=== PATIENT | female | born 1945 | race Caucasian/White ===

== ENCOUNTER 2018-03-16 07:21 | Inpatient (IN) | payer MEDICARE, OTHER ==
[~2018-03-16] VITALS: Ht 167.6 cm; Wt 102.4 kg
[2018-03-16] MEDS ORDERED: LIDO700A15 TD (07:31)
[2018-03-16] MEDS ORDERED: AMLO-512 PO (07:31)
[2018-03-16] MEDS ORDERED: ADAL40KI SQ (07:31)
[2018-03-16] MEDS ORDERED: DOCU250C91 PO (07:31)
[2018-03-16] MEDS ORDERED: CITA-106 PO (07:31)
[2018-03-16] MEDS ORDERED: BUPR-47 PO (07:31)
[2018-03-16] MEDS ORDERED: CARV3 PO (07:31)
[2018-03-16] MEDS ORDERED: APIX5TAB PO (07:31)
[2018-03-16] MEDS ORDERED: FLUT16H NASAL (07:31)
[2018-03-16] MEDS ORDERED: IPRNEB IH (07:31)
[2018-03-16] MEDS ORDERED: HYDR-2924 PO (07:31)
[2018-03-16] MEDS ORDERED: ASPI81TA39 PO (07:31)
[2018-03-16] MEDS ORDERED: SENN-175 PO (07:31)
[2018-03-16] MEDS ORDERED: FAMO20 PO (07:31)
[2018-03-16 07:53] LABS: BASOPHILS % (AUTO) 0.9 % (0.0-2.0); EOSINOPHILS % (AUTO) 3.1 % (1.0-6.0); HEMATOCRIT 39.3 % (36-46); LYMPHOCYTES # (AUTO) 0.5 K/uL (1.0-4.8); LYMPHOCYTES % (AUTO) 9.5 % (22.0-44.0); MEAN CORPUSCULAR HEMOGLOBIN 28.2 pg (26.0-34.0); MEAN CORPUSCULAR HGB CONC 33.2 G/dL (31.0-37.0); MEAN CORPUSCULAR VOLUME 85 fL (80-100); MONOCYTES # (AUTO) 0.2 K/uL (0.1-1.0); MONOCYTES % (AUTO) 4.4 % (2.0-9.0); NEUTROPHILS # (AUTO) 3.9 K/uL (1.8-7.7); NEUTROPHILS % (AUTO) 82.1 % (40.0-70.0); PLATELET COUNT (AUTO) 209 K/uL (150-450); RED BLOOD CELL COUNT(AUTO) 4.62 MIL/uL (4.00-5.20); RED CELL DISTRIBUTION WIDTH 15.5 % (11.5-14.5)
[2018-03-16 07:58] LABS: ANION GAP 8 mmol/L (8-16); CARBON DIOXIDE 24 mmol/L (22-29); CHLORIDE 104 mmol/L (98-107); GLOMERULAR FILTR. RATE CALC 23 mL/min (>60); GLUCOSE,RANDOM 113 mg/dL (70-110); POTASSIUM 5.1 mmol/L (3.5-5.1); SODIUM SERUM 136 mmol/L (136-145); UREA NITROGEN, BLOOD 32 mg/dL (7-18)
[2018-03-16 08:03] LABS: INR 1.1 (0.9-1.1); PROTHROMBIN TIME 11.1 SEC (9.4-11.6)
[2018-03-16 08:06] LABS: ALANINE AMINOTRANSFERASE 12 U/L (12-78); ALBUMIN 3.3 g/dL (3.4-5.0); ALKALINE PHOSPHATASE 93 U/L (46-116); ASPARTATE AMINOTRANSFERASE 12 U/L (15-37); BILIRUBIN,TOTAL 0.3 mg/dL (0.1-1.0); CREATINE KINASE, TOTAL 16 U/L (26-192); TOTAL PROTEIN, SERUM 6.5 g/dL (6.4-8.2)
[2018-03-16] MEDS ORDERED: ONDANSETRON HCL 4 MG/2 ML VIAL ONE (08:14)
[2018-03-16] MEDS ORDERED: ONDANSETRON HCL 4 MG/2 ML VIAL IVP ONE (08:15)
[2018-03-16 08:43] LABS: ABG A-A DIFF O2 12.4 mmHg (10-20.0); ABG BASE EXCESS -1.9 mmol/L (-2.0-3.0); ABG CARBOXYHEMOGLOBIN 1.6 % (0.0-1.5); ABG HCO3 22.1 mmol/L (22.0-26.0); ABG METHEMOGLOBIN 0.4 % (0.0-1.5); ABG OXYGEN CONTENT 17.2 mL/dL (15.0-23.0); ABG OXYGEN SATURATION 93.2 % (95.0-98.0); ABG OXYHEMOGLOBIN 91.3 % (94.0-100.0); ABG PCO2 57 mmHg (35-45); ABG PH 7.264 (7.35-7.450); ABG TOTAL HEMOGLOBIN 13.4 G/dL (12.0-18.0); O2 DEVICE,BLOOD GAS ROOM AIR (ROOM AIR); PO2, ARTERIAL BG 69.7 mmHg (75.0-83.0); SITE, BLOOD GAS LFT RADIAL; SOURCE, BLOOD GAS ARTERIAL
[2018-03-16 08:56] LABS: B-TYPE NATRIURETIC PEPTIDE 22 pg/mL (0-100)
[2018-03-16] MEDS ORDERED: ACETAMINOPHEN 325 MG TABLET PO PRN ×2 (09:15→11:00)
[2018-03-16] MEDS ORDERED: 0.9% SODIUM CHLORIDE 10 ML SYRINGE IVP PRN (09:15)
[2018-03-16] MEDS ORDERED: ONDANSETRON HCL 4 MG/2 ML VIAL IVP PRN ×2 (09:15→11:00)
[2018-03-16 09:55] LABS: ABG A-A DIFF O2 12.1 mmHg (10-20.0); ABG BASE EXCESS -3.6 mmol/L (-2.0-3.0); ABG CARBOXYHEMOGLOBIN 1.5 % (0.0-1.5); ABG HCO3 21.7 mmol/L (22.0-26.0); ABG METHEMOGLOBIN 0.5 % (0.0-1.5); ABG OXYGEN CONTENT 18.5 mL/dL (15.0-23.0); ABG OXYGEN SATURATION 96.8 % (95.0-98.0); ABG OXYHEMOGLOBIN 94.9 % (94.0-100.0); ABG PCO2 41 mmHg (35-45); ABG PH 7.349 (7.35-7.450); ABG TOTAL HEMOGLOBIN 13.8 G/dL (12.0-18.0); O2 DEVICE,BLOOD GAS ROOM AIR (ROOM AIR); PO2, ARTERIAL BG 88.7 mmHg (75.0-83.0); SITE, BLOOD GAS RT RADIAL; SOURCE, BLOOD GAS ARTERIAL; TEMPERATURE, FAHRENHEIT, BG 98.6 FAHREN (96.0-98.6)
[2018-03-16] MEDS: ASPIRIN 81 MG CHEWABLE TABLET PO SCH (11:00)
[2018-03-16] MEDS ORDERED: ALBUTEROL SULFATE 2.5 MG/0.5 ML NEB SOLUTION NEB PRN (11:00)
[2018-03-16] MEDS ORDERED: BISACODYL 10 MG RECTAL RECTAL SUPPOSITORY PR PRN (11:00)
[2018-03-16] MEDS: ATORVASTATIN CALCIUM 20 MG TABLET PO SCH (11:00)
[2018-03-16 13:50] VITALS: BP 140/86
[2018-03-16 15:17] VITALS: BP 147/95
[2018-03-16] MEDS: HEPARIN SODIUM,PORCINE 5,000 UNITS/ML VIAL SQ SCH ×2 (16:00→23:56)
[2018-03-16] MEDS ORDERED: PNEUMOCOCCAL VACCINE POLYVALENT 0.5 ML VIAL [PPSV23] IM ONE (16:15)
[2018-03-16 16:18] LABS: THYROID STIMULATING HORMONE 9.04 uIU/mL (0.36-3.74)
[2018-03-16 19:47] VITALS: BP 139/97
[2018-03-16] MEDS: DOCUSATE SODIUM 100 MG CAPSULE PO SCH (21:00)
[2018-03-17] VITALS: BP 121/77
[2018-03-17 04:35] VITALS: BP 122/62
[2018-03-17 07:26] LABS: BASOPHILS % (AUTO) 0.9 % (0.0-2.0); HEMATOCRIT 39.5 % (36-46); HEMOGLOBIN 13.3 g/dL (12.0-16.0); LYMPHOCYTES # (AUTO) 0.7 K/uL (1.0-4.8); LYMPHOCYTES % (AUTO) 13.2 % (22.0-44.0); MEAN CORPUSCULAR HEMOGLOBIN 28.3 pg (26.0-34.0); MEAN CORPUSCULAR HGB CONC 33.6 G/dL (31.0-37.0); MEAN CORPUSCULAR VOLUME 84 fL (80-100); MONOCYTES # (AUTO) 0.4 K/uL (0.1-1.0); MONOCYTES % (AUTO) 7.8 % (2.0-9.0); NEUTROPHILS % (AUTO) 76.1 % (40.0-70.0); PLATELET COUNT (AUTO) 232 K/uL (150-450); RED BLOOD CELL COUNT(AUTO) 4.69 MIL/uL (4.00-5.20); RED CELL DISTRIBUTION WIDTH 16.1 % (11.5-14.5)
[2018-03-17 07:55] LABS: CALCIUM, TOTAL 9.1 mg/dL (8.8-10.5); CREATININE 2.55 mg/dL (0.60-1.30); POTASSIUM 5.3 mmol/L (3.5-5.1)
[2018-03-17 08:02] VITALS: BP 138/76
[2018-03-17] MEDS: ATORVASTATIN CALCIUM 20 MG TABLET PO SCH (08:08)
[2018-03-17] MEDS: ASPIRIN 81 MG CHEWABLE TABLET PO SCH (08:08)
[2018-03-17] MEDS: DOCUSATE SODIUM 100 MG CAPSULE PO SCH ×2 (08:08→21:04)
[2018-03-17] MEDS: PANTOPRAZOLE SODIUM 40 MG DR TABLET PO SCH (08:09)
[2018-03-17] MEDS: HEPARIN SODIUM,PORCINE 5,000 UNITS/ML VIAL SQ SCH ×3 (08:14→23:22)
[2018-03-17 12:00] VITALS: BP 136/84
[2018-03-17 16:00] VITALS: BP 141/88
[2018-03-17 20:19] VITALS: BP 133/80
[2018-03-18 00:22] VITALS: BP 127/82
[2018-03-18 04:29] VITALS: BP 135/86
[2018-03-18] MEDS: LEVOTHYROXINE SODIUM 25 MCG TABLET PO SCH (06:25)
[2018-03-18 06:27] LABS: CALCIUM, TOTAL 8.8 mg/dL (8.8-10.5); CREATININE 2.99 mg/dL (0.60-1.30); POTASSIUM 5.1 mmol/L (3.5-5.1)
[2018-03-18 07:48] VITALS: BP 140/76
[2018-03-18] MEDS: DOCUSATE SODIUM 100 MG CAPSULE PO SCH ×2 (09:17→20:52)
[2018-03-18] MEDS: ATORVASTATIN CALCIUM 20 MG TABLET PO SCH (09:17)
[2018-03-18] MEDS: PANTOPRAZOLE SODIUM 40 MG DR TABLET PO SCH (09:17)
[2018-03-18] MEDS: ASPIRIN 81 MG CHEWABLE TABLET PO SCH (09:17)
[2018-03-18] MEDS: HEPARIN SODIUM,PORCINE 5,000 UNITS/ML VIAL SQ SCH ×2 (09:18→20:52)
[2018-03-18 11:30] VITALS: BP 119/65
[2018-03-18] MEDS ORDERED: SODIUM CHLORIDE 0.9% 1,000 ML IV ONE (12:15)
[2018-03-18] MEDS ORDERED: LORazepam 2 MG/ML VIAL IVP ONE (14:00)
[2018-03-18 16:37] VITALS: BP 132/77
[2018-03-18 20:08] VITALS: BP 132/54
[2018-03-19 00:34] VITALS: BP 141/76
[2018-03-19 04:10] VITALS: BP 113/76
[2018-03-19] MEDS: LEVOTHYROXINE SODIUM 25 MCG TABLET PO SCH (06:19)
[2018-03-19 07:21] LABS: CALCIUM, TOTAL 8.4 mg/dL (8.8-10.5); CREATININE 2.56 mg/dL (0.60-1.30); POTASSIUM 4.8 mmol/L (3.5-5.1)
[2018-03-19 07:38] VITALS: BP 135/69
[2018-03-19] MEDS: PANTOPRAZOLE SODIUM 40 MG DR TABLET PO SCH (09:36)
[2018-03-19] MEDS: DOCUSATE SODIUM 100 MG CAPSULE PO SCH ×2 (09:36→21:54)
[2018-03-19] MEDS: ATORVASTATIN CALCIUM 20 MG TABLET PO SCH (09:36)
[2018-03-19] MEDS: ASPIRIN 81 MG CHEWABLE TABLET PO SCH (09:36)
[2018-03-19] MEDS: HEPARIN SODIUM,PORCINE 5,000 UNITS/ML VIAL SQ SCH ×2 (09:37→21:54)
[2018-03-19 11:54] VITALS: BP 129/60
[2018-03-19 15:44] VITALS: BP 115/80
[2018-03-19] MEDS: IBUPROFEN 400 MG TABLET PO SCH (16:57)
[2018-03-19 19:38] VITALS: BP 132/75
[2018-03-19] MEDS: NYSTATIN 15 GM POWDER BOTTLE TP SCH (21:54)
[2018-03-20 00:27] VITALS: BP 143/73
[2018-03-20 03:59] VITALS: BP 145/77
[2018-03-20] MEDS: LEVOTHYROXINE SODIUM 25 MCG TABLET PO SCH (06:10)
[2018-03-20 08:00] VITALS: BP 147/88
[2018-03-20] MEDS: PANTOPRAZOLE SODIUM 40 MG DR TABLET PO SCH (08:38)
[2018-03-20] MEDS: ASPIRIN 81 MG CHEWABLE TABLET PO SCH (08:38)
[2018-03-20] MEDS: DOCUSATE SODIUM 100 MG CAPSULE PO SCH (08:38)
[2018-03-20] MEDS: IBUPROFEN 400 MG TABLET PO SCH ×3 (08:38→15:13)
[2018-03-20] MEDS: HEPARIN SODIUM,PORCINE 5,000 UNITS/ML VIAL SQ SCH (08:39)
[2018-03-20] MEDS: ATORVASTATIN CALCIUM 20 MG TABLET PO SCH (08:39)
[2018-03-20] MEDS: NYSTATIN 15 GM POWDER BOTTLE TP SCH (08:39)
[2018-03-20] MEDS ORDERED: SERTRALINE HCL 50 MG TABLET PO SCH (09:00)
[2018-03-20 11:16] VITALS: BP 120/59
[2018-03-20] MEDS ORDERED: BUPR150SR PO (15:49)
[2018-03-20 15:55] VITALS: BP 126/73
== END 2018-03-20 17:45 | DRG 682 ==
LOC: EMS 07:23 → 5S 11:37
PROVIDERS: ADMIT Internal Medicine; ATTEND Internal Medicine
PROC: 5A09457 Assistance with Respiratory Ventilation, 24-96 Consecutive Hours, Continuous Positive Airway Pressure (ICD-10-PCS; principal; 2018-03-16)
DX: N17.9 Acute kidney failure, unspecified (principal); G92 Toxic encephalopathy; F33.2 Major depressive disorder, recurrent severe without psychotic features; E87.2 Acidosis; I50.32 Chronic diastolic (congestive) heart failure; G47.33 Obstructive sleep apnea (adult) (pediatric); T50.905A Adverse effect of unspecified drugs, medicaments and biological substances, initial encounter; I25.10 Atherosclerotic heart disease of native coronary artery without angina pectoris; M19.90 Unspecified osteoarthritis, unspecified site; N18.9 Chronic kidney disease, unspecified; G89.29 Other chronic pain; M10.9 Gout, unspecified; E66.01 Morbid (severe) obesity due to excess calories; J44.9 Chronic obstructive pulmonary disease, unspecified; E03.9 Hypothyroidism, unspecified; Z79.82 Long term (current) use of aspirin; Z79.01 Long term (current) use of anticoagulants; Z79.899 Other long term (current) drug therapy; Z87.440 Personal history of urinary (tract) infections; Z68.36 Body mass index [BMI] 36.0-36.9, adult; Z28.21 Immunization not carried out because of patient refusal; Y92.89 Other specified places as the place of occurrence of the external cause
CPT/HCPCS: 51702; 70551; 82805; 84443; 87081; 92610; 93005; 93306; 94660; 96374; 97162; 99291; G0480; J1644; J2060; J2405; J7030

== ENCOUNTER 2020-10-09 13:05 | Inpatient (IN) | payer MEDICARE, OTHER ==
[~2020-10-09] VITALS: Ht 165.1 cm; Wt 133.5 kg
[~2020-10-09 13:05] MED LIST: ADAL40KI SQ; AMLO-258 PO; APIX5TAB PO; ASPI-728 PO; BUPR-93 PO; CEFA1FRO IV; DOCU-350 PO; FLUT16H NASAL; HYDR-2924 PO; IPRNEB IH; LEVO112T4 PO; PANT-31 PO; SENN-277 PO
[2020-10-09 15:44] LABS: BASOPHILS % (AUTO) 0.5 % (0.0-2.0); EOSINOPHILS % (AUTO) 0.5 % (1.0-6.0); HEMATOCRIT 27.7 % (36-46); HEMOGLOBIN 8.8 g/dL (12.0-16.0); LYMPHOCYTES # (AUTO) 0.9 K/uL (1.0-4.8); LYMPHOCYTES % (AUTO) 13.9 % (22.0-44.0); MEAN CORPUSCULAR HEMOGLOBIN 29.1 pg (26.0-34.0); MEAN CORPUSCULAR HGB CONC 31.7 G/dL (31.0-37.0); MEAN CORPUSCULAR VOLUME 92 fL (80-100); MONOCYTES # (AUTO) 0.5 K/uL (0.1-1.0); NEUTROPHILS # (AUTO) 4.9 K/uL (1.8-7.7); NEUTROPHILS % (AUTO) 77.1 % (40.0-70.0); PLATELET COUNT (AUTO) 183 K/uL (150-450); RED BLOOD CELL COUNT(AUTO) 3.02 MIL/uL (4.00-5.20); RED CELL DISTRIBUTION WIDTH 16.2 % (11.5-14.5)
[2020-10-09] MEDS ORDERED: DEXAMETHASONE SOD PHOS 4 MG/ML VIAL IVP ONE (15:45)
[2020-10-09 15:50] LABS: CALCIUM, TOTAL 8.1 mg/dL (8.8-10.5); CREATININE 2.25 mg/dL (0.60-1.30); POTASSIUM 5.8 mmol/L (3.5-5.1)
[2020-10-09 15:59] LABS: INR 1.1 (0.9-1.1); PROTHROMBIN TIME 11.9 SEC (9.4-11.6)
[2020-10-09 16:07] LABS: COVID AG,FIA SOURCE NASAL SWAB
[2020-10-09 16:15] LABS: ALBUMIN 2.1 g/dL (3.4-5.0); BILIRUBIN,TOTAL 0.4 mg/dL (0.1-1.0); TOTAL PROTEIN, SERUM 6.5 g/dL (6.4-8.2)
[2020-10-09 16:38] LABS: INFLUENZA TYPE A NEGATIVE FOR TYPE A (NEGATIVE); INFLUENZA TYPE B NEGATIVE FOR TYPE B (NEGATIVE)
[2020-10-09 17:30] LABS: D-DIMER 0.91 mg/L FEU (0.00-0.50)
[2020-10-09 17:45] LABS: C-REACTIVE PROTEIN QUANT 20.05 mg/dL (0.00-0.30)
[2020-10-09] MEDS ORDERED: 0.9% SODIUM CHLORIDE 10 ML SYRINGE IVP PRN (17:45)
[2020-10-09] MEDS ORDERED: ALBUTEROL SULFATE/IPRATROPIUM 100-20 MCG/SPRAY 4 GM INHALER IH PRN (17:45)
[2020-10-09] MEDS ORDERED: BISACODYL 10 MG RECTAL RECTAL SUPPOSITORY PR PRN (17:45)
[2020-10-09] MEDS ORDERED: ONDANSETRON HCL 4 MG/2 ML VIAL IVP PRN (17:45)
[2020-10-09] MEDS ORDERED: HEPARIN SODIUM,PORCINE 5,000 UNITS/ML VIAL IVP PRN ×2 (18:00)
[2020-10-09] MEDS: ALBUTEROL SULFATE/IPRATROPIUM 100-20 MCG/SPRAY 4 GM INHALER IH SCH (18:46)
[2020-10-09] MEDS: CefTRIAXone 1 GM/DEXTROSE 50 ML IV SCH (18:48)
[2020-10-09] MEDS ORDERED: HYDR10TA31 PO (19:24)
[2020-10-09] MEDS ORDERED: OXYC10TA59 PO (19:24)
[2020-10-09] MEDS ORDERED: CRAN400C PO (19:24)
[2020-10-09 19:47] LABS: INR 1.1 (0.9-1.1); PROTHROMBIN TIME 11.6 SEC (9.4-11.6)
[2020-10-09] MEDS ORDERED: SODIUM CHLORIDE 0.9% 250 ML IV ONE (22:37)
[2020-10-09 22:39] VITALS: BP 112/62
[2020-10-09] MEDS: SENNA 187 MG TABLET PO SCH (22:43)
[2020-10-09] MEDS: DOXYCYCLINE HYCLATE 100 MG in DEXTROSE 5%-WATER 100 ML IV SCH (22:43)
[2020-10-09] MEDS: DOCUSATE SODIUM 100 MG CAPSULE PO SCH (22:43)
[2020-10-09] MEDS: PANTOPRAZOLE SODIUM 40 MG DR TABLET PO SCH (22:43)
[2020-10-09] MEDS: HEPARIN SODIUM 25000 UNITS/D5W 250 ML IV PRN (23:34)
[2020-10-10 04:38] VITALS: BP 133/59
[2020-10-10] MEDS: ALBUTEROL SULFATE/IPRATROPIUM 100-20 MCG/SPRAY 4 GM INHALER IH SCH ×4 (06:00→18:00)
[2020-10-10] MEDS: LEVOTHYROXINE SODIUM 112 MCG TABLET PO SCH (06:32)
[2020-10-10 07:37] LABS: BASOPHILS % (AUTO) 0.3 % (0.0-2.0); EOSINOPHILS % (AUTO) 0 % (1.0-6.0); HEMATOCRIT 30.3 % (36-46); HEMOGLOBIN 9.7 g/dL (12.0-16.0); LYMPHOCYTES # (AUTO) 0.4 K/uL (1.0-4.8); LYMPHOCYTES % (AUTO) 8.6 % (22.0-44.0); MEAN CORPUSCULAR HEMOGLOBIN 29.2 pg (26.0-34.0); MEAN CORPUSCULAR HGB CONC 31.9 G/dL (31.0-37.0); MEAN CORPUSCULAR VOLUME 92 fL (80-100); MONOCYTES # (AUTO) 0.2 K/uL (0.1-1.0); MONOCYTES % (AUTO) 4.8 % (2.0-9.0); NEUTROPHILS # (AUTO) 3.7 K/uL (1.8-7.7); PLATELET COUNT (AUTO) 187 K/uL (150-450); RED BLOOD CELL COUNT(AUTO) 3.31 MIL/uL (4.00-5.20)
[2020-10-10 08:23] LABS: NEUTROPHILS % (AUTO) 86.3 % (40.0-70.0)
[2020-10-10 08:24] VITALS: BP 128/72
[2020-10-10] MEDS: BuPROPion HCL XL 150 MG ER TABLET PO SCH (08:29)
[2020-10-10] MEDS: PANTOPRAZOLE SODIUM 40 MG DR TABLET PO SCH ×2 (08:29→21:42)
[2020-10-10] MEDS: SENNA 187 MG TABLET PO SCH ×2 (08:29→21:42)
[2020-10-10] MEDS: DEXAMETHASONE SOD PHOS 4 MG/ML VIAL IVP SCH (08:29)
[2020-10-10] MEDS: ASPIRIN 81 MG CHEWABLE TABLET PO SCH (08:30)
[2020-10-10] MEDS: DOCUSATE SODIUM 100 MG CAPSULE PO SCH ×2 (08:30→21:42)
[2020-10-10] MEDS: DOXYCYCLINE HYCLATE 100 MG in DEXTROSE 5%-WATER 100 ML IV SCH ×2 (08:31→21:42)
[2020-10-10] MEDS: FLUTICASONE PROPIONATE 50 MCG/SPRAY 16 GM NASAL SPRAY NASAL SCH (08:31)
[2020-10-10 08:55] LABS: ALBUMIN 2.2 g/dL (3.4-5.0); BILIRUBIN,TOTAL 0.2 mg/dL (0.1-1.0); C-REACTIVE PROTEIN QUANT 15.46 mg/dL (0.00-0.30); CALCIUM, TOTAL 8.7 mg/dL (8.8-10.5); CREATININE 2.11 mg/dL (0.60-1.30); POTASSIUM 5.3 mmol/L (3.5-5.1); TOTAL PROTEIN, SERUM 6.6 g/dL (6.4-8.2)
[2020-10-10 09:13] LABS: D-DIMER 0.8 mg/L FEU (0.00-0.50)
[2020-10-10] MEDS ORDERED: SODIUM CHLORIDE 0.9% 1,000 ML IV ONE (09:30)
[2020-10-10 10:22] LABS: ERYTHROCYTE SEDIMENTATION RATE 120 MM/HR (0-20)
[2020-10-10] MEDS: HEPARIN SODIUM 25000 UNITS/D5W 250 ML IV PRN ×2 (10:40→22:26)
[2020-10-10 14:02] VITALS: BP 135/66
[2020-10-10 17:11] VITALS: BP 142/69
[2020-10-10] MEDS: CefTRIAXone 1 GM/DEXTROSE 50 ML IV SCH (18:47)
[2020-10-10 20:45] VITALS: BP 146/72
[2020-10-11 01:00] VITALS: BP 148/77
[2020-10-11 04:30] VITALS: BP 155/74
[2020-10-11] MEDS: ALBUTEROL SULFATE/IPRATROPIUM 100-20 MCG/SPRAY 4 GM INHALER IH SCH ×3 (06:00→12:00)
[2020-10-11] MEDS: LEVOTHYROXINE SODIUM 112 MCG TABLET PO SCH (06:06)
[2020-10-11 06:52] LABS: BASOPHILS % (AUTO) 0.2 % (0.0-2.0); EOSINOPHILS % (AUTO) 0 % (1.0-6.0); HEMATOCRIT 29.7 % (36-46); HEMOGLOBIN 9.5 g/dL (12.0-16.0); LYMPHOCYTES % (AUTO) 5.1 % (22.0-44.0); MEAN CORPUSCULAR HEMOGLOBIN 28.8 pg (26.0-34.0); MEAN CORPUSCULAR HGB CONC 32.1 G/dL (31.0-37.0); MEAN CORPUSCULAR VOLUME 90 fL (80-100); MONOCYTES # (AUTO) 0.5 K/uL (0.1-1.0); MONOCYTES % (AUTO) 2.5 % (2.0-9.0); NEUTROPHILS # (AUTO) 17.6 K/uL (1.8-7.7); PLATELET COUNT (AUTO) 252 K/uL (150-450); RED BLOOD CELL COUNT(AUTO) 3.32 MIL/uL (4.00-5.20); RED CELL DISTRIBUTION WIDTH 16.4 % (11.5-14.5)
[2020-10-11 07:08] LABS: NEUTROPHILS % (AUTO) 92.2 % (40.0-70.0)
[2020-10-11 07:23] VITALS: BP 158/73
[2020-10-11 07:41] LABS: ALBUMIN 2.2 g/dL (3.4-5.0); BILIRUBIN,TOTAL 0.4 mg/dL (0.1-1.0); C-REACTIVE PROTEIN QUANT 7.65 mg/dL (0.00-0.30); CALCIUM, TOTAL 8.7 mg/dL (8.8-10.5); CREATININE 1.79 mg/dL (0.60-1.30); POTASSIUM 4.7 mmol/L (3.5-5.1); TOTAL PROTEIN, SERUM 6.7 g/dL (6.4-8.2)
[2020-10-11] MEDS: DOXYCYCLINE HYCLATE 100 MG in DEXTROSE 5%-WATER 100 ML IV SCH ×2 (08:12→22:01)
[2020-10-11] MEDS: DEXAMETHASONE SOD PHOS 4 MG/ML VIAL IVP SCH (08:13)
[2020-10-11] MEDS: SENNA 187 MG TABLET PO SCH ×2 (08:14→22:00)
[2020-10-11] MEDS: PANTOPRAZOLE SODIUM 40 MG DR TABLET PO SCH ×2 (08:14→22:00)
[2020-10-11] MEDS: FLUTICASONE PROPIONATE 50 MCG/SPRAY 16 GM NASAL SPRAY NASAL SCH (08:14)
[2020-10-11] MEDS: BuPROPion HCL XL 150 MG ER TABLET PO SCH (08:14)
[2020-10-11] MEDS: ASPIRIN 81 MG CHEWABLE TABLET PO SCH (08:14)
[2020-10-11] MEDS: DOCUSATE SODIUM 100 MG CAPSULE PO SCH ×2 (08:14→22:00)
[2020-10-11 09:48] LABS: ERYTHROCYTE SEDIMENTATION RATE 105 MM/HR (0-20)
[2020-10-11 12:31] VITALS: BP 143/57
[2020-10-11 15:40] VITALS: BP 150/66
[2020-10-11] MEDS: HEPARIN SODIUM 25000 UNITS/D5W 250 ML IV PRN (16:32)
[2020-10-11] MEDS: CefTRIAXone 1 GM/DEXTROSE 50 ML IV SCH (20:18)
[2020-10-11 21:26] VITALS: BP 144/63
[2020-10-12 00:36] VITALS: BP 126/72
[2020-10-12 04:13] VITALS: BP 137/61
[2020-10-12] MEDS: ALBUTEROL SULFATE/IPRATROPIUM 100-20 MCG/SPRAY 4 GM INHALER IH SCH ×4 (06:00→17:24)
[2020-10-12] MEDS: LEVOTHYROXINE SODIUM 112 MCG TABLET PO SCH (06:23)
[2020-10-12 06:49] LABS: BASOPHILS % (AUTO) 0.4 % (0.0-2.0); EOSINOPHILS % (AUTO) 0.1 % (1.0-6.0); HEMATOCRIT 32.2 % (36-46); HEMOGLOBIN 10.3 g/dL (12.0-16.0); LYMPHOCYTES # (AUTO) 1.3 K/uL (1.0-4.8); LYMPHOCYTES % (AUTO) 9.2 % (22.0-44.0); MEAN CORPUSCULAR HEMOGLOBIN 28.8 pg (26.0-34.0); MEAN CORPUSCULAR HGB CONC 31.9 G/dL (31.0-37.0); MEAN CORPUSCULAR VOLUME 90 fL (80-100); MONOCYTES # (AUTO) 0.7 K/uL (0.1-1.0); NEUTROPHILS # (AUTO) 11.7 K/uL (1.8-7.7); PLATELET COUNT (AUTO) 249 K/uL (150-450); RED BLOOD CELL COUNT(AUTO) 3.57 MIL/uL (4.00-5.20); RED CELL DISTRIBUTION WIDTH 16.7 % (11.5-14.5)
[2020-10-12 07:30] LABS: D-DIMER 0.96 mg/L FEU (0.00-0.50)
[2020-10-12 07:39] LABS: ALBUMIN 2.3 g/dL (3.4-5.0); BILIRUBIN,TOTAL 0.3 mg/dL (0.1-1.0); C-REACTIVE PROTEIN QUANT 4.81 mg/dL (0.00-0.30); CREATININE 1.79 mg/dL (0.60-1.30); POTASSIUM 4.8 mmol/L (3.5-5.1); TOTAL PROTEIN, SERUM 6.6 g/dL (6.4-8.2)
[2020-10-12 07:47] LABS: NEUTROPHILS % (AUTO) 85.3 % (40.0-70.0)
[2020-10-12 08:29] VITALS: BP 151/69
[2020-10-12] MEDS: PANTOPRAZOLE SODIUM 40 MG DR TABLET PO SCH ×2 (09:08→19:58)
[2020-10-12] MEDS: BuPROPion HCL XL 150 MG ER TABLET PO SCH (09:08)
[2020-10-12] MEDS: ASPIRIN 81 MG CHEWABLE TABLET PO SCH (09:08)
[2020-10-12] MEDS: DOCUSATE SODIUM 100 MG CAPSULE PO SCH ×2 (09:08→19:58)
[2020-10-12] MEDS: SENNA 187 MG TABLET PO SCH ×2 (09:08→19:58)
[2020-10-12] MEDS: DOXYCYCLINE HYCLATE 100 MG in DEXTROSE 5%-WATER 100 ML IV SCH ×2 (09:09→19:58)
[2020-10-12] MEDS: FLUTICASONE PROPIONATE 50 MCG/SPRAY 16 GM NASAL SPRAY NASAL SCH (09:12)
[2020-10-12 10:58] LABS: ERYTHROCYTE SEDIMENTATION RATE 107 MM/HR (0-20)
[2020-10-12 12:00] VITALS: BP 160/80
[2020-10-12 16:50] VITALS: BP 155/78
[2020-10-12] MEDS: CefTRIAXone 1 GM/DEXTROSE 50 ML IV SCH (17:19)
[2020-10-12] MEDS: DEXAMETHASONE SOD PHOS 4 MG/ML VIAL IVP SCH (17:19)
[2020-10-12] MEDS: HEPARIN SODIUM 25000 UNITS/D5W 250 ML IV PRN (18:28)
[2020-10-12] MEDS: ACETAMINOPHEN 325 MG TABLET PO PRN (20:13)
[2020-10-12 20:58] VITALS: BP 155/90
[2020-10-13 01:00] VITALS: BP 162/80
[2020-10-13] MEDS: ALBUTEROL SULFATE/IPRATROPIUM 100-20 MCG/SPRAY 4 GM INHALER IH SCH ×4 (01:37→17:13)
[2020-10-13 04:06] VITALS: BP 170/83
[2020-10-13] MEDS: AmLODIPine BESYLATE 10 MG TABLET PO SCH ×2 (05:03→08:44)
[2020-10-13] MEDS: LEVOTHYROXINE SODIUM 112 MCG TABLET PO SCH (06:31)
[2020-10-13 08:23] LABS: BASOPHILS % (AUTO) 0.1 % (0.0-2.0); EOSINOPHILS % (AUTO) 0.6 % (1.0-6.0); HEMATOCRIT 33.5 % (36-46); HEMOGLOBIN 10.6 g/dL (12.0-16.0); LYMPHOCYTES # (AUTO) 1.2 K/uL (1.0-4.8); MEAN CORPUSCULAR HEMOGLOBIN 28.7 pg (26.0-34.0); MEAN CORPUSCULAR HGB CONC 31.8 G/dL (31.0-37.0); MEAN CORPUSCULAR VOLUME 91 fL (80-100); MONOCYTES # (AUTO) 0.1 K/uL (0.1-1.0); MONOCYTES % (AUTO) 0.9 % (2.0-9.0); NEUTROPHILS # (AUTO) 9.3 K/uL (1.8-7.7); PLATELET COUNT (AUTO) 238 K/uL (150-450); RED CELL DISTRIBUTION WIDTH 17.1 % (11.5-14.5)
[2020-10-13 08:25] LABS: NEUTROPHILS % (AUTO) 87.4 % (40.0-70.0)
[2020-10-13] MEDS: DOXYCYCLINE HYCLATE 100 MG in DEXTROSE 5%-WATER 100 ML IV SCH ×2 (08:43→22:20)
[2020-10-13] MEDS: PANTOPRAZOLE SODIUM 40 MG DR TABLET PO SCH ×2 (08:43→22:20)
[2020-10-13] MEDS: ASPIRIN 81 MG CHEWABLE TABLET PO SCH (08:44)
[2020-10-13] MEDS: BuPROPion HCL XL 150 MG ER TABLET PO SCH (08:44)
[2020-10-13] MEDS: DOCUSATE SODIUM 100 MG CAPSULE PO SCH ×2 (08:44→22:20)
[2020-10-13] MEDS: SENNA 187 MG TABLET PO SCH ×2 (08:44→22:20)
[2020-10-13] MEDS: ACETAMINOPHEN 325 MG TABLET PO PRN ×2 (08:44→16:26)
[2020-10-13] MEDS: DEXAMETHASONE SOD PHOS 4 MG/ML VIAL IVP SCH (08:44)
[2020-10-13 08:47] VITALS: BP 117/98
[2020-10-13] MEDS: FLUTICASONE PROPIONATE 50 MCG/SPRAY 16 GM NASAL SPRAY NASAL SCH (10:21)
[2020-10-13 10:28] LABS: ALBUMIN 2.3 g/dL (3.4-5.0); BILIRUBIN,TOTAL 0.3 mg/dL (0.1-1.0); C-REACTIVE PROTEIN QUANT 3.22 mg/dL (0.00-0.30); CALCIUM, TOTAL 8.7 mg/dL (8.8-10.5); CREATININE 1.75 mg/dL (0.60-1.30); POTASSIUM 4.8 mmol/L (3.5-5.1); TOTAL PROTEIN, SERUM 6.3 g/dL (6.4-8.2)
[2020-10-13 12:00] VITALS: BP 146/99
[2020-10-13] MEDS: HEPARIN SODIUM 25000 UNITS/D5W 250 ML IV PRN (15:45)
[2020-10-13 16:00] VITALS: BP 153/79
[2020-10-13] MEDS: CefTRIAXone 1 GM/DEXTROSE 50 ML IV SCH (17:11)
[2020-10-13 20:38] VITALS: BP 156/74
[2020-10-13] MEDS: OXYMETAZOLINE HCL 0.05% 15 ML NASAL SPRAY NASAL SCH (22:20)
[2020-10-14] MEDS: ACETAMINOPHEN 325 MG TABLET PO PRN ×3 (00:09→22:18)
[2020-10-14] MEDS: ALBUTEROL SULFATE/IPRATROPIUM 100-20 MCG/SPRAY 4 GM INHALER IH SCH ×4 (00:10→19:38)
[2020-10-14 00:28] VITALS: BP 151/83
[2020-10-14] MEDS ORDERED: BACLOFEN 10 MG TABLET PO ONE (01:45)
[2020-10-14 06:10] VITALS: BP 110/84
[2020-10-14] MEDS: LEVOTHYROXINE SODIUM 112 MCG TABLET PO SCH (06:18)
[2020-10-14] MEDS: DOXYCYCLINE HYCLATE 100 MG in DEXTROSE 5%-WATER 100 ML IV SCH ×2 (07:58→22:21)
[2020-10-14 08:00] VITALS: BP 154/73
[2020-10-14] MEDS: OXYMETAZOLINE HCL 0.05% 15 ML NASAL SPRAY NASAL SCH ×2 (08:07→22:19)
[2020-10-14] MEDS: FLUTICASONE PROPIONATE 50 MCG/SPRAY 16 GM NASAL SPRAY NASAL SCH (08:07)
[2020-10-14] MEDS: PANTOPRAZOLE SODIUM 40 MG DR TABLET PO SCH ×2 (08:07→22:18)
[2020-10-14] MEDS: DEXAMETHASONE SOD PHOS 4 MG/ML VIAL IVP SCH (08:08)
[2020-10-14] MEDS: AmLODIPine BESYLATE 10 MG TABLET PO SCH (08:08)
[2020-10-14] MEDS: DOCUSATE SODIUM 100 MG CAPSULE PO SCH ×2 (08:08→22:18)
[2020-10-14] MEDS: SENNA 187 MG TABLET PO SCH ×2 (08:08→22:27)
[2020-10-14] MEDS: BuPROPion HCL XL 150 MG ER TABLET PO SCH (08:08)
[2020-10-14] MEDS: ASPIRIN 81 MG CHEWABLE TABLET PO SCH (08:08)
[2020-10-14] MEDS ORDERED: CEFTR1IV IV (10:46)
[2020-10-14] MEDS ORDERED: DEXA2 PO (10:49)
[2020-10-14] MEDS ORDERED: DOXY-354 PO (10:51)
[2020-10-14] MEDS ORDERED: OXYM30SP27 NASAL (10:52)
[2020-10-14] MEDS ORDERED: IPRA4AER IH (11:01)
[2020-10-14 12:18] VITALS: BP 143/70
[2020-10-14 16:29] VITALS: BP 144/66
[2020-10-14] MEDS: CefTRIAXone 1 GM/DEXTROSE 50 ML IV SCH (19:35)
[2020-10-14 20:15] VITALS: BP 160/81
[2020-10-14] MEDS: APIXABAN 5 MG TABLET PO SCH (22:18)
[2020-10-15] MEDS: ALBUTEROL SULFATE/IPRATROPIUM 100-20 MCG/SPRAY 4 GM INHALER IH SCH ×4 (00:07→17:17)
[2020-10-15 04:25] VITALS: BP 163/87
[2020-10-15] MEDS: LEVOTHYROXINE SODIUM 112 MCG TABLET PO SCH (06:23)
[2020-10-15 08:00] VITALS: BP 154/54
[2020-10-15] MEDS: DOCUSATE SODIUM 100 MG CAPSULE PO SCH ×2 (09:14→21:00)
[2020-10-15] MEDS: BuPROPion HCL XL 150 MG ER TABLET PO SCH (09:14)
[2020-10-15] MEDS: SENNA 187 MG TABLET PO SCH ×2 (09:14→21:00)
[2020-10-15] MEDS: APIXABAN 5 MG TABLET PO SCH ×2 (09:14→21:00)
[2020-10-15] MEDS: AmLODIPine BESYLATE 10 MG TABLET PO SCH (09:14)
[2020-10-15] MEDS: ASPIRIN 81 MG CHEWABLE TABLET PO SCH (09:14)
[2020-10-15] MEDS: PANTOPRAZOLE SODIUM 40 MG DR TABLET PO SCH ×2 (09:14→21:00)
[2020-10-15] MEDS: DEXAMETHASONE SOD PHOS 4 MG/ML VIAL IVP SCH (09:15)
[2020-10-15] MEDS: DOXYCYCLINE HYCLATE 100 MG in DEXTROSE 5%-WATER 100 ML IV SCH ×2 (09:16→22:00)
[2020-10-15] MEDS: FLUTICASONE PROPIONATE 50 MCG/SPRAY 16 GM NASAL SPRAY NASAL SCH (09:16)
[2020-10-15] MEDS: OXYMETAZOLINE HCL 0.05% 15 ML NASAL SPRAY NASAL SCH ×2 (09:17→21:00)
[2020-10-15 12:22] VITALS: BP 143/94
[2020-10-15 16:17] VITALS: BP 122/77
[2020-10-15] MEDS: ALPRAZolam 0.5 MG TABLET PO PRN (17:16)
[2020-10-15] MEDS ORDERED: SODIUM CHLORIDE 0.9% 250 ML IV ONE (17:18)
[2020-10-15] MEDS: CefTRIAXone 1 GM/DEXTROSE 50 ML IV SCH (17:19)
[2020-10-15 19:48] VITALS: BP 133/95
[2020-10-15] MEDS ORDERED: SODIUM CHLORIDE 0.9% 500 ML IV ONE (20:49)
[2020-10-15 23:59] VITALS: BP 134/65
[2020-10-16] MEDS: ALPRAZolam 0.5 MG TABLET PO PRN ×3 (00:58→20:11)
[2020-10-16] MEDS: ALBUTEROL SULFATE/IPRATROPIUM 100-20 MCG/SPRAY 4 GM INHALER IH SCH ×4 (00:58→18:36)
[2020-10-16 08:20] VITALS: BP 159/74
[2020-10-16] MEDS: OXYMETAZOLINE HCL 0.05% 15 ML NASAL SPRAY NASAL SCH ×2 (09:00→20:42)
[2020-10-16] MEDS: SENNA 187 MG TABLET PO SCH ×2 (09:00→20:12)
[2020-10-16] MEDS: FLUTICASONE PROPIONATE 50 MCG/SPRAY 16 GM NASAL SPRAY NASAL SCH (09:00)
[2020-10-16] MEDS: AmLODIPine BESYLATE 10 MG TABLET PO SCH (09:32)
[2020-10-16] MEDS: DOCUSATE SODIUM 100 MG CAPSULE PO SCH ×2 (09:32→20:12)
[2020-10-16] MEDS: ASPIRIN 81 MG CHEWABLE TABLET PO SCH (09:32)
[2020-10-16] MEDS: BuPROPion HCL XL 150 MG ER TABLET PO SCH (09:32)
[2020-10-16] MEDS: DOXYCYCLINE HYCLATE 100 MG in DEXTROSE 5%-WATER 100 ML IV SCH ×2 (09:32→20:12)
[2020-10-16] MEDS: LEVOTHYROXINE SODIUM 112 MCG TABLET PO SCH (09:32)
[2020-10-16] MEDS: PANTOPRAZOLE SODIUM 40 MG DR TABLET PO SCH ×2 (09:32→20:12)
[2020-10-16] MEDS: DEXAMETHASONE SOD PHOS 4 MG/ML VIAL IVP SCH (11:49)
[2020-10-16] MEDS: APIXABAN 5 MG TABLET PO SCH ×2 (11:49→20:12)
[2020-10-16 16:11] VITALS: BP 142/74
[2020-10-16] MEDS: CefTRIAXone 1 GM/DEXTROSE 50 ML IV SCH (18:36)
[2020-10-16] MEDS: ACETAMINOPHEN 325 MG TABLET PO PRN (20:13)
[2020-10-16 20:16] VITALS: BP 134/66
[2020-10-16] MEDS ORDERED: SODIUM CHLORIDE 0.9% 500 ML IV ONE (20:22)
[2020-10-17 00:15] VITALS: BP 130/74
[2020-10-17] MEDS: ALBUTEROL SULFATE/IPRATROPIUM 100-20 MCG/SPRAY 4 GM INHALER IH SCH ×3 (00:23→12:00)
[2020-10-17] MEDS: LEVOTHYROXINE SODIUM 112 MCG TABLET PO SCH (05:50)
[2020-10-17 05:58] VITALS: BP 143/81
[2020-10-17 07:50] VITALS: BP 124/77
[2020-10-17] MEDS: ASPIRIN 81 MG CHEWABLE TABLET PO SCH (08:51)
[2020-10-17] MEDS: BuPROPion HCL XL 150 MG ER TABLET PO SCH (08:52)
[2020-10-17] MEDS: ACETAMINOPHEN 325 MG TABLET PO PRN (08:52)
[2020-10-17] MEDS: AmLODIPine BESYLATE 10 MG TABLET PO SCH (08:52)
[2020-10-17] MEDS: APIXABAN 5 MG TABLET PO SCH (08:52)
[2020-10-17] MEDS: PANTOPRAZOLE SODIUM 40 MG DR TABLET PO SCH (08:52)
[2020-10-17] MEDS: SENNA 187 MG TABLET PO SCH (08:52)
[2020-10-17] MEDS: DEXAMETHASONE SOD PHOS 4 MG/ML VIAL IVP SCH (08:53)
[2020-10-17] MEDS: DOXYCYCLINE HYCLATE 100 MG in DEXTROSE 5%-WATER 100 ML IV SCH (08:54)
[2020-10-17] MEDS: FLUTICASONE PROPIONATE 50 MCG/SPRAY 16 GM NASAL SPRAY NASAL SCH (08:55)
[2020-10-17] MEDS: OXYMETAZOLINE HCL 0.05% 15 ML NASAL SPRAY NASAL SCH (08:55)
[2020-10-17] MEDS: DOCUSATE SODIUM 100 MG CAPSULE PO SCH (08:56)
[2020-10-17 16:00] VITALS: BP 122/76
== END 2020-10-17 18:31 | DRG 177 ==
LOC: EMS 13:13 → 5N 18:57 → 6N 10-15 19:00
PROVIDERS: ADMIT Internal Medicine; ATTEND Internal Medicine
DX: U07.1 COVID-19 (principal); J96.21 Acute and chronic respiratory failure with hypoxia; J12.89 Other viral pneumonia; E87.1 Hypo-osmolality and hyponatremia; I13.0 Hypertensive heart and chronic kidney disease with heart failure and stage 1 through stage 4 chronic kidney disease, or unspecified chronic kidney disease; J44.0 Chronic obstructive pulmonary disease with (acute) lower respiratory infection; N17.9 Acute kidney failure, unspecified; Z68.42 Body mass index [BMI] 45.0-49.9, adult; F33.1 Major depressive disorder, recurrent, moderate; D68.69 Other thrombophilia; E03.9 Hypothyroidism, unspecified; D64.9 Anemia, unspecified; E87.5 Hyperkalemia; I50.9 Heart failure, unspecified; K21.9 Gastro-esophageal reflux disease without esophagitis; N18.9 Chronic kidney disease, unspecified; M19.90 Unspecified osteoarthritis, unspecified site; E66.9 Obesity, unspecified; E87.6 Hypokalemia; I25.10 Atherosclerotic heart disease of native coronary artery without angina pectoris; Z74.01 Bed confinement status; Z79.01 Long term (current) use of anticoagulants; Z82.49 Family history of ischemic heart disease and other diseases of the circulatory system; Z86.14 Personal history of Methicillin resistant Staphylococcus aureus infection; Z86.718 Personal history of other venous thrombosis and embolism; Z79.899 Other long term (current) drug therapy; Z79.82 Long term (current) use of aspirin
CPT/HCPCS: 82728; 83605; 83615; 84145; 85379; 85651; 86140; 87040; 87081; 87426; 87804; 93005; 93306; 93970; 94640; 99291; J0696; J1100; J1644; J2405; J3490; J7030; J7040; J7050; J7060; 36415-L1; 36415-TC; 71045-TC; U0003

== ENCOUNTER 2022-12-03 19:15 | Emergency (ER) | payer MEDICARE, OTHER ==
[~2022-12-03] VITALS: Ht 165.1 cm; Wt 133.6 kg
[~2022-12-03 19:15] MED LIST changes: -ADAL40KI SQ; +ALLO-97 PO; +ASPI-1450 PO; -ASPI-728 PO; +ATOR20TA86 PO; +BUPR-50 PO; -BUPR-93 PO; +CALC0.2521 PO; +CARV3 PO; -CEFA1FRO IV; +CEFTR1IV IV; +COLC0.6T73 PO; +CYAN500T56 PO; +DEXA2 PO; +DOXY-354 PO; +FERR325T22 PO; -FLUT16H NASAL; +FLUT16SP NASAL; -HYDR-2924 PO; +HYDR50TA36 PO; +IPRA4AER IH; -IPRNEB IH; +MECL25TA39 PO; +OXYC10TA59 PO; +OXYM30SP27 NASAL; +PREG25 PO; +TIZA4TAB12 PO
[2022-12-03 21:56] VITALS: BP 112/56
[2022-12-03 23:37] LABS: BASOPHILS % (AUTO) 0.4 % (0.0-2.0); HEMATOCRIT 25.8 % (36-46); LYMPHOCYTES # (AUTO) 0.8 K/uL (1.0-4.8); LYMPHOCYTES % (AUTO) 7.7 % (22.0-44.0); MEAN CORPUSCULAR HEMOGLOBIN 25.1 pg (26.0-34.0); MEAN CORPUSCULAR HGB CONC 31.1 G/dL (31.0-37.0); MEAN CORPUSCULAR VOLUME 81 fL (80-100); MONOCYTES # (AUTO) 0.4 K/uL (0.1-1.0); MONOCYTES % (AUTO) 3.8 % (2.0-9.0); NEUTROPHILS # (AUTO) 8.4 K/uL (1.8-7.7); PLATELET COUNT (AUTO) 377 K/uL (150-450); RED BLOOD CELL COUNT(AUTO) 3.19 MIL/uL (4.00-5.20); RED CELL DISTRIBUTION WIDTH 21.5 % (11.5-14.5)
[2022-12-03 23:46] LABS: CALCIUM, TOTAL 8.1 mg/dL (8.8-10.5); CREATININE 3.74 mg/dL (0.60-1.30); NEUTROPHILS % (AUTO) 86.1 % (40.0-70.0)
[2022-12-03 23:52] LABS: BILIRUBIN,TOTAL 0.3 mg/dL (0.1-1.0); TOTAL PROTEIN, SERUM 7.1 g/dL (6.4-8.2)
[2022-12-03 23:58] LABS: INR 1.2 (0.9-1.1); PROTHROMBIN TIME 12.5 SEC (9.4-11.6)
== END 2022-12-04 00:56 | disposition home or self-care (01) ==
LOC: EMS 19:17
DX: E11.22 Type 2 diabetes mellitus with diabetic chronic kidney disease (principal); I13.0 Hypertensive heart and chronic kidney disease with heart failure and stage 1 through stage 4 chronic kidney disease, or unspecified chronic kidney disease; N18.9 Chronic kidney disease, unspecified; D64.9 Anemia, unspecified; J44.9 Chronic obstructive pulmonary disease, unspecified; E03.9 Hypothyroidism, unspecified
CPT/HCPCS: 80053; 85025; 85610; 85730; 86850; 86900; 86901; 99283